=== PATIENT | female | born 1970 | race Caucasian/White ===

== ENCOUNTER 2018-05-29 23:07 | Emergency (ER) | payer MEDICAID ==
[~2018-05-29] VITALS: Ht 165.1 cm; Wt 76.4 kg
[2018-05-29] MEDS ORDERED: LEVO75 PO (23:20)
[2018-05-30] MEDS ORDERED: IBUPROFEN 600 MG TABLET PO ONE (00:30)
[2018-05-30 01:32] VITALS: BP 149/80
== END 2018-05-30 02:17 | disposition home or self-care (01) ==
LOC: EMS 23:09
DX: S20.212A Contusion of left front wall of thorax, initial encounter (principal); E03.9 Hypothyroidism, unspecified; Z79.899 Other long term (current) drug therapy; W20.8XXA Other cause of strike by thrown, projected or falling object, initial encounter; Y93.89 Activity, other specified; Y92.89 Other specified places as the place of occurrence of the external cause; Y99.8 Other external cause status
CPT/HCPCS: 71101